=== PATIENT | female | born 1950 | race Caucasian/White ===

== ENCOUNTER → 2018-06-23 | Day surgery (SDC) | payer OTHER ==
--- NOTE | 2018-06-24 17:57 | PATH ---
Surgical Pathology Report Patient Name: MURIEL GAITAN [facility]. Rec. #: [id number] /Age/Gender: 1950 (Age: 67) / F Account: [id number] Location: [facility]OLOGY [facility] Taken: 06/23/2018 Received: 06/23/2018 Reported: 06/24/2018 Physicians: Hawa Colby M.D. Specimen(s) Received RIGHT BREAST RIGHT 10:00 Clinical History Nonpalpable lesion Ultrasound findings: Probably benign 1.04 cm, ? 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 Electronically Signed Carrie Browne M.D. Gross Description Received in formalin labeled "right 10:00," are 6 fontana-yellow, cylindrical portions of fibroadipose tissue ranging from 0.3-0.5 cm in length and averaging 0.1 cm in diameter. The specimens are submitted in toto in one cassette. Time to formalin fixation: Less than one minute Total formalin fixation time: Approximately 6 hours. /06/23/2018 saudi06/23/2018
== END | disposition home or self-care (01) ==
LOC: JRADUS-SUR 10:44
PROVIDERS: ATTEND Internal Medicine
PROC: 0HBT3ZX Excision of Right Breast, Percutaneous Approach, Diagnostic (ICD-10-PCS; principal; 2018-06-23)
DX: D24.1 Benign neoplasm of right breast (principal)
CPT/HCPCS: 19083; 87899; 88305-TC; A4648

== ENCOUNTER 2021-08-23 11:15 | Emergency (ER) | payer BC, OTHER ==
[2021-08-23 12:08] VITALS: BP 117/80; PULSE 94; TEMP 97.5; BMI 33.3
[2021-08-23 15:09] LABS: EPI CELLS 25 /uL (0-25.1); HYALINE CASTS 7 /uL (0-3.1); PH,URINE 5.5 (5.0-8.0); URINE APPEARANCE CLOUDY; URINE BACTERIA 366 /uL (0-1359); URINE BILIRUBIN NEGATIVE (NEGATIVE); URINE COLOR YELLOW; URINE GLUCOSE (UA) NEGATIVE (NEGATIVE); URINE KETONE NEGATIVE (NEGATIVE); URINE LEUK ESTERASE 1+ (NEGATIVE); URINE NITRITE NEGATIVE (NEGATIVE); URINE PROTEIN TRACE (NEGATIVE); URINE RBC 8 /uL (0-23.9); URINE WBC 242 /uL (0-25.8)
== END 2021-08-23 16:15 | disposition home or self-care (01) ==
LOC: JERFT 11:15
DX: R30.0 Dysuria (principal)
CPT/HCPCS: 81003; 87086; 99283-25